=== PATIENT | female | born 1975 | race African-American/Black ===

== ENCOUNTER 2018-11-28 08:52 | Emergency (ER) | payer OTHER ==
[2018-11-28] MEDS: KETOROLAC 60 MG INJ IM (09:54)
[2018-11-28] MEDS: METHOCARBAMOL 750 MG TAB PO (09:54)
[2018-11-28 10:01] LABS: URINE BLOOD (Dip) POC 1+ (NEGATIVE); URINE GLUCOSE (Dip) POC Negative (NEGATIVE); URINE KETONES (Dip) POC Negative (NEGATIVE); URINE LEUKOCYTE EST (Dip) POC Negative (NEGATIVE); URINE NITRITE (Dip) POC Negative (NEGATIVE); URINE TOTAL PROTEIN POC Trace (NEGATIVE)
== END 2018-11-28 10:26 | disposition home or self-care (01) ==
LOC: FTE 08:52
DX: M62.838 Other muscle spasm (principal)
CPT/HCPCS: 81003; 81025; 96372; 99284-25